=== PATIENT | male | born 1970 | race Caucasian/White ===

== ENCOUNTER 2021-06-09 01:27 | Day surgery (SDC) | payer BC, SELFPAY ==
[2021-05-29 10:07] VITALS: BMI 25.8
[2021-06-09 08:54] VITALS: BP 137/95; PULSE 96; RESP 18; TEMP 37.1; O2SAT 100
[2021-06-09] MEDS: LACTATED RINGERS 1,000 ML 150 ML IV CONT (09:06)
[2021-06-09 09:10] LABS: Glucose Point of Care 210 mg/dl (65-105)
--- NOTE | 2021-06-09 09:21 | WPDGICN ---
Assessment and Plan Assessment and plan (1) History of rectal cancer: Code(s): Z85.048 - Personal history of other malignant neoplasm of rectum, rectosigmoid junction, and anus Status: Acute Assessment and Plan: Patient has a history of rectal cancer in 2017. He had a unremarkable colonoscopy in 2018. Patient presents today for surveillance colonoscopy. Continuing fiber supplements may help regulate bowel habits. Further recommendations will be given after endoscopy. GI Consult Note Consult date/time: 06/09/21 09:21 HPI: Dano Chan Jr. is a 50 year old male Presents for screening colonoscopy. Patient's current weight appetite bowel movements are normal. He denies abdominal pain. His past history is significant for rectal cancer resected in felt to be cured in 2017. Patient presents today for surveillance colonoscopy. Patient's current weight appetite are normal. He has occasional rectal urgency. Fiber supplements seem to help with his bowel habits. He denies any bleeding or weight loss. Family history is noncontributory. Review of Systems Review of Systems: All systems reviewed & are unremarkable except as noted in HPI and below PMFSH Social History Social History Smoking packs per day: 0.5 Smoking cigarettes per day: 10.0 Years smoked: 15 Smoking pack-years: 7.50 Smoking status: Former smoker Tobacco type: cigarettes Alcohol intake: current Drinks per week: 12 Living arrangements: with family Spiritual care concerns: No Meds Home Medications and Allergies Home Medications Medication Instructions Recorded Confirmed Type metformin 1,000 mg PO BID 05/29/21 06/09/21 History omega 2-knd-sav-fish oil [Fish Oil] 3 cap PO DAILY 05/29/21 06/09/21 History sildenafil 100 mg PO DAILY PRN 05/29/21 06/09/21 History Allergies Allergy/AdvReac Type Severity Reaction Status Date / Time No Known Allergies Allergy Verified 06/09/21 08:47 Vital Signs Vital Signs - 24 hr 06/09/21 08:54 Temperature 98.8 F Pulse Rate 96 Respiratory Rate 18 Blood Pressure 137/95 H Pulse Oximetry 100 Exam Narrative: Physical exam reveals patient be alert. Vital signs stable. HEENT exam is unremarkable. Patient is anicteric. Lungs are clear to auscultation and percussion. Heart is without murmur or extra sounds. Abdominal exam bowel sounds are present soft nontender with no organomegaly. Digital external rectal exam is normal.
--- NOTE | 2021-06-09 09:26 | P.PNAN_ITS ---
Anes - Initial Pre Proc Eval Procedure: Operation Date: 06/09/21 10:00 Proposed Procedures p Screening Colonoscopy - Carlos Peguero MD Date/Time: 06/09/21 09:26 Surgeon: Carlos Peguero MD Pre Op Diagnosis: hx of rectal ca Patient Data Age: 50 Gender: M Height: 1.8 m Weight: 85.7 kg Last Vital Signs Temp 37.1 C 06/09/21 08:54 Pulse 96 06/09/21 08:54 Resp 18 06/09/21 08:54 BP 137/95 H 06/09/21 08:54 Pulse Ox 100 06/09/21 08:54 Allergies Allergy/AdvReac Type Severity Reaction Status Date / Time No Known Allergies Allergy Verified 06/09/21 08:47 Home Medications Medication Instructions Recorded Confirmed Type metformin 1,000 mg PO BID 05/29/21 06/09/21 History omega 5-kng-zwg-fish oil [Fish Oil] 3 cap PO DAILY 05/29/21 06/09/21 History sildenafil 100 mg PO DAILY PRN 05/29/21 06/09/21 History Laboratory Tests 06/09/21 09:04 POC Capillary Glucose 210 mg/dl H mg/dl (65-105) Patient hx anesthesia problems: none Family hx anesthesia problems: none Results Review: All pre-operative results and documents have been reviewed as part of the pre-operative evaluation. [facility] Surgical History Surgical History (Updated 06/09/21 @ 09:30 by Ritchie Jeffery MD) History of colon resection Social History Social History Smoking packs per day: 0.5 Smoking cigarettes per day: 10.0 Years smoked: 15 Smoking pack-years: 7.50 Smoking status: Former smoker Tobacco type: cigarettes Alcohol intake: current Drinks per week: 12 Living arrangements: with family Spiritual care concerns: No Anes - Eval Final PreProcedure Day of Procedure 06/09/21 09:26 Patient weight: normal Heart: regular rate and rhythm Lungs: clear to auscultation Airway: Mallampati scale class II Neurological: alert and oriented Last oral intake: >/= 8 hours ASA classification: II Emergent: no Anesthetic plan: proceed Anesthesia type and monitoring: general GIVS and standard monitoring Results Review: All pre-operative results and documents have been reviewed as part of the pre-operative evaluation. Informed Consent: The patient's anesthetic plan and its attendant risks and benefits were discussed with the patient/family/POA. Questions were solicited and answers provided to the satisfaction of the patient/family/POA.
[2021-06-09 10:20] VITALS: BP 137/86; PULSE 99; RESP 18; O2SAT 99
[2021-06-09 10:30] VITALS: BP 140/99; PULSE 84; RESP 19; O2SAT 98
[2021-06-09 10:40] VITALS: BP 162/61; PULSE 83; RESP 22; O2SAT 99
== END 2021-06-09 11:05 | disposition home or self-care (01) ==
PROVIDERS: PCP Internal Medicine; Visit Provider Internal Medicine Gastroenterology
PROC: 0DJD8ZZ Inspection of Lower Intestinal Tract, Via Natural or Artificial Opening Endoscopic (ICD-10-PCS; CPT 45378; principal; 2021-06-09 10:00)
DX: Z12.11 Encounter for screening for malignant neoplasm of colon (principal); K63.5 Polyp of colon; Z85.038 Personal history of other malignant neoplasm of large intestine; Z98.0 Intestinal bypass and anastomosis status; Z90.49 Acquired absence of other specified parts of digestive tract; Z87.891 Personal history of nicotine dependence; Z79.84 Long term (current) use of oral hypoglycemic drugs
CPT/HCPCS: 45385; 82948; 88305; J2704; J7120

== ENCOUNTER 2024-05-28 00:57 | Day surgery (SDC) | payer BC, SELFPAY ==
[2024-05-08 13:49] VITALS: BMI 26.5
[2024-05-28 09:37] VITALS: BP 124/78; PULSE 77; RESP 20; TEMP 36.3; O2SAT 100
[2024-05-28] MEDS: LACTATED RINGERS 1,000 ML 150 ML IV CONT (09:54)
[2024-05-28 09:55] LABS: Glucose Point of Care 173 mg/dl (65-105)
--- NOTE | 2024-05-28 10:34 | PM.IMHP ---
H&P: HPI History of Present Illness Date/Time: 05/28/24 10:34 Chief Complaint: History of rectal cancer Narrative: the patient had rectal cancer diagnosed in 2017. His last colonoscopy was in 2020, did not have polyps. Review of Systems Review of Systems: All systems reviewed & are unremarkable except as noted in HPI and below PEND[facility] SALE TO [facility] Surgical History Surgical History (Updated 06/09/21 @ 09:30 by Ritchie Jeffery MD) History of colon resection Social History Social History Smoking packs per day: 0.5 Smoking cigarettes per day: 10.0 Years smoked: 15 Smoking pack-years: 7.50 Smoking status: Former smoker Tobacco type: cigarettes Alcohol intake: current Drinks per week: 12 Living arrangements: with family Spiritual care concerns: No Meds Home Medications and Allergies Home Medications Medication Instructions Recorded Confirmed Type metformin 1,000 mg tablet 1,000 mg PO BID 05/29/21 05/28/24 History omega 9-fzy-euc-fish oil 1,200 mg 2 cap PO DAILY 05/29/21 05/28/24 History (144 mg-216 mg) capsule (Fish Oil) sildenafil 100 mg tablet (Viagra) 100 mg PO DAILY PRN Erectile 05/29/21 05/28/24 History Dysfunction metronidazole 1 % topical gel 1 applic topical DAILY 05/08/24 05/28/24 History Allergies Allergy/AdvReac Type Severity Reaction Status Date / Time No Known Allergies Allergy Verified 05/28/24 09:34 Vital Signs Vital Signs - 24 hr 05/28/24 09:37 Temperature 97.3 F L Pulse Rate 77 Respiratory Rate 20 Blood Pressure 124/78 Pulse Oximetry 100 Oxygen Delivery Room Air Exam Const: General: cooperative and healthy appearing Resp: Effort & Inspection: normal respiratory effort and able to speak in complete sentences Auscultation: clear to auscultation bilaterally Cardio: Rate: regular rate Rhythm: regular rhythm GI: Inspection: normal to inspection GI Palp: No No hepatosplenomegaly present Auscultation: normal bowel sounds Rectal Exam: deferred Skin: General skin exam: normal color Psych: Appearance: grossly normal Mental Status: mental status grossly normal Assessment and Plan Assessment and plan (1) History of rectal cancer: Code(s): Z85.048 - Personal history of other malignant neoplasm of rectum, rectosigmoid junction, and anus Status: Acute Assessment and Plan: The patient is deemed a good candidate for the procedure. Consent signed. Will proceed.
--- NOTE | 2024-05-28 10:45 | WPDANESEPPF ---
Anes - Initial Pre Proc Eval Procedure: Operation Date: 05/28/24 11:00 Proposed Procedures p Colonoscopy - James Killian MD Date/Time: 05/28/24 10:45 Surgeon: James Killian MD Pre Op Diagnosis: personal hx of cancer Patient Data Age: 53 Gender: M Height: 1.8 m Weight: 86.8 kg Last Vital Signs Temp 97.3 F L 05/28/24 09:37 Pulse 77 05/28/24 09:37 Resp 20 05/28/24 09:37 BP 124/78 05/28/24 09:37 Pulse Ox 100 05/28/24 09:37 O2 Del Method Room Air 05/28/24 09:37 Allergies Allergy/AdvReac Type Severity Reaction Status Date / Time No Known Allergies Allergy Verified 05/28/24 09:34 Home Medications Medication Instructions Recorded Confirmed Type metformin 1,000 mg tablet 1,000 mg PO BID 05/29/21 05/28/24 History omega 4-hxc-sdg-fish oil 1,200 mg 2 cap PO DAILY 05/29/21 05/28/24 History (144 mg-216 mg) capsule (Fish Oil) sildenafil 100 mg tablet (Viagra) 100 mg PO DAILY PRN Erectile 05/29/21 05/28/24 History Dysfunction metronidazole 1 % topical gel 1 applic topical DAILY 05/08/24 05/28/24 History Laboratory Tests 05/28/24 09:45 POC Capillary Glucose 173 H mg/dl (65-105) Patient hx anesthesia problems: none Family hx anesthesia problems: none Results Review: All pre-operative results and documents have been reviewed as part of the pre-operative evaluation. [facility] Surgical History Surgical History (Updated 06/09/21 @ 09:30 by Ritchie Jeffery MD) History of colon resection Social History Social History Smoking packs per day: 0.5 Smoking cigarettes per day: 10.0 Years smoked: 15 Smoking pack-years: 7.50 Smoking status: Former smoker Tobacco type: cigarettes Alcohol intake: current Drinks per week: 12 Living arrangements: with family Spiritual care concerns: No Anes - Eval Final PreProcedure Day of Procedure 05/28/24 10:45 Patient weight: normal Heart: regular rate and rhythm Lungs: clear to auscultation Airway: Mallampati scale class II Neurological: alert and oriented Last oral intake: >/= 8 hours ASA classification: III Emergent: no Anesthetic plan: proceed Anesthesia type and monitoring: general GIVS and standard monitoring Results Review: All pre-operative results and documents have been reviewed as part of the pre-operative evaluation. Informed Consent: The patient's anesthetic plan and its attendant risks and benefits were discussed with the patient/family/POA. Questions were solicited and answers provided to the satisfaction of the patient/family/POA.
[2024-05-28] MEDS: SIMETHICONE ORAL SUSPENSION 20 MG/0.3 ML 30 ML BOTTLE 0.6 ML IRRIGATION (10:52)
[2024-05-28 11:04] VITALS: BP 119/76; PULSE 75; RESP 19; O2SAT 100
[2024-05-28 11:14] VITALS: BP 125/88; PULSE 71; RESP 17; O2SAT 100
[2024-05-28 11:24] VITALS: BP 130/91; PULSE 75; RESP 21; O2SAT 100
== END 2024-05-28 11:29 | disposition home or self-care (01) ==
PROVIDERS: PCP Internal Medicine; Visit Provider Internal Medicine Gastroenterology
PROC: 0DJD8ZZ Inspection of Lower Intestinal Tract, Via Natural or Artificial Opening Endoscopic (ICD-10-PCS; CPT 45378; principal; 2024-05-28 11:00)
DX: Z12.11 Encounter for screening for malignant neoplasm of colon (principal); Z79.84 Long term (current) use of oral hypoglycemic drugs; Z98.890 Other specified postprocedural states; Z98.0 Intestinal bypass and anastomosis status; Z90.49 Acquired absence of other specified parts of digestive tract; Z87.891 Personal history of nicotine dependence; Z85.048 Personal history of other malignant neoplasm of rectum, rectosigmoid junction, and anus
CPT/HCPCS: 45378; 82948; J2003; J2704; J7120